=== PATIENT | male | born 1980 | race American Indian/Alaskan Native ===

== ENCOUNTER 2020-06-23 04:15 | Observation (INO) | payer OTHER, SELFPAY ==
--- NOTE | 2020-06-23 07:38 | Emergency Department Report ---
ED Shortness of Breath HPI - General Chief Complaint: Dyspnea/Respdistress Stated Complaint: LESLEE Time Seen by Provider: 06/23/20 06:19 Source: patient, EMS Mode of arrival: Stretcher Limitations: No Limitations - History of Present Illness Initial Comments: 40-year-old male presents to ED with complaint of cough. Patient arrived earlier via EMS for difficulty breathing, however patient denies any dyspnea. Patient states he has a cold, with a cough that began on yesterday. Upon my initial evaluation, patient asleep on stretcher, with O2 sats of 95% on room air. Patient was initially somewhat difficult to wake up. However, after waking up, patient was able to report his symptoms. Patient states he does not remember how he got to the emergency room. He states he only remembers falling asleep at home and then waking up here. Patient reports smoking marijuana last night, denies any other drugs or alcohol. MD Complaint: cough -: days(s) (2) Severity: mild Consistency: intermittent Improves With: nothing Worsens With: nothing Context: recent URI Treatments Prior to Arrival: none - Related Data Allergies Allergy/AdvReac Type Severity Reaction Status Date / Time No Known Allergies Allergy Unverified 06/23/20 05:45 ED Review of Systems ROS: Stated complaint: LESLEE Other details as noted in HPI Comment: All other systems reviewed and negative Constitutional: denies: chills, fever Respiratory: cough. denies: shortness of breath Cardiovascular: denies: chest pain ED Past Medical Hx - Past Medical History Previous Medical History?: No - Surgical History Past Surgical History?: No - Social History Smoking Status: Current Every Day Smoker Substance Use Type: None ED Physical Exam - General Limitations: No Limitations General appearance: alert, in no apparent distress - Head Head exam: Present: atraumatic, normocephalic - Eye Eye exam: Present: normal appearance, EOMI - ENT ENT exam: Present: mucous membranes moist - Neck Neck exam: Present: normal inspection - Respiratory Respiratory exam: Present: normal lung sounds bilaterally. Absent: respiratory distress, wheezes, rales, rhonchi - Cardiovascular Cardiovascular Exam: Present: regular rate, normal rhythm - GI/Abdominal GI/Abdominal exam: Present: soft. Absent: distended, tenderness - Extremities Exam Extremities exam: Present: normal inspection. Absent: pedal edema, calf tenderness - Neurological Exam Neurological exam: Present: alert, oriented X3 - Psychiatric Psychiatric exam: Present: normal affect, normal mood - Skin Skin exam: Present: warm, dry, intact, normal color ED Course Vital Signs 06/23/20 06/23/20 06/23/20 04:25 04:30 05:15 Temperature 98.2 F Pulse Rate 88 93 H 92 H Respiratory 24 33 H 30 H Rate Blood Pressure 124/74 121/73 115/73 Blood Pressure 124/74 [Left] O2 Sat by Pulse 95 93 92 Oximetry 06/23/20 06/23/20 06/23/20 05:30 06:01 06:31 Temperature Pulse Rate 82 82 Respiratory 31 H 25 H Rate Blood Pressure 117/58 128/79 126/78 Blood Pressure [Left] O2 Sat by Pulse 95 93 96 Oximetry 06/23/20 06/23/20 06/23/20 06:54 07:15 07:30 Temperature 98.3 F Pulse Rate 117 H Respiratory Rate Blood Pressure 121/86 123/83 Blood Pressure [Left] O2 Sat by Pulse 97 93 Oximetry 06/23/20 06/23/20 06/23/20 07:45 08:00 08:15 Temperature Pulse Rate 74 66 Respiratory Rate Blood Pressure 125/78 128/82 118/84 Blood Pressure [Left] O2 Sat by Pulse 94 95 97 Oximetry 06/23/20 06/23/20 06/23/20 09:00 10:00 11:00 Temperature Pulse Rate Respiratory Rate Blood Pressure 141/94 130/70 151/81 Blood Pressure [Left] O2 Sat by Pulse 96 96 94 Oximetry 06/23/20 06/23/20 12:15 13:30 Temperature Pulse Rate Respiratory Rate Blood Pressure 137/95 143/87 Blood Pressure [Left] O2 Sat by Pulse 98 96 Oximetry ED Medical Decision Making - Lab Data Result diagrams: 06/23/20 08:53 06/23/20 08:53 - Radiology Data Radiology results: report reviewed, image reviewed - Medical Decision Making 40-year-old male with URI symptoms no shortness of breath. O2 sats as low as 92% on room air. Chest x-ray shows multifocal pneumonia. WBC slightly elevated at 13, lactic acid is normal. Blood cultures drawn, patient given Rocephin, azithromycin, Decadron. Covid panel ordered. Drug screen also positive for cocaine. Patient will be admitted to hospitalist for further management. - Differential Diagnosis URI, COVID-19, pneumonia, intoxication Critical Care Time: Yes Critical care time in (mins) excluding proc time.: 35 Critical care attestation.: If time is entered above; I have spent that time in minutes in the direct care of this critically ill patient, excluding procedure time. Critical Care Time: 35 min ED Disposition Clinical Impression: Pneumonia, Hypoxia, Suspected 2019 novel coronavirus infection, Cocaine abuse Disposition: DC-09 OP ADMIT IP TO THIS HOSP Is pt being admited?: Yes Condition: Stable Time of Disposition: 09:47
--- NOTE | 2020-06-23 07:56 | XRay Report ---
CHEST 1 VIEW INDICATION / CLINICAL INFORMATION: cough. FINDINGS: SUPPORT DEVICES: None. HEART / MEDIASTINUM: No significant abnormality. LUNGS / PLEURA: Multifocal airspace pneumonia identified within both lower lungs. Signer Name: Salvador Bonds MD Signed: 06/23/2020 7:51 AM Workstation Name: [id number]
[2020-06-23] MEDS ORDERED: AZITHROMYCIN 250 MG TAB PO ONE (08:01)
[2020-06-23] MEDS ORDERED: cefTRIAXone/NS 1 GM/50 ML 1 GM/50 ML BAG IV ONE ×2 (08:01→12:00)
[2020-06-23] MEDS ORDERED: DEXAMETHASONE 4 MG TAB PO ONE (08:48)
[2020-06-23 09:22] LABS: Basophils # (Auto) 0.1 K/mm3 (0.0-0.1); Basophils % (Auto) 0.6 % (0.0-1.8); Eosinophils # (Auto) 0.4 K/mm3 (0.0-0.4); Eosinophils % (Auto) 2.9 % (0.0-4.3); Hematocrit 45.8 % (35.5-45.6); Hemoglobin 15.2 gm/dl (11.8-15.2); Lymphocytes # (Auto) 3.8 K/mm3 (1.2-5.4); Lymphocytes % (Auto) 27.5 % (13.4-35.0); Mean Corpuscular HGB Conc 33 % (32-34); Mean Corpuscular Volume 91 fl (84-94); Monocytes # (Auto) 1.4 K/mm3 (0.0-0.8); Monocytes % (Auto) 10.4 % (0.0-7.3); Platelet Count 217 K/mm3 (140-440); Red Blood Count 5.01 M/mm3 (3.65-5.03); Red Cell Distribution Width 14.2 % (13.2-15.2)
[2020-06-23 09:30] LABS: INR 1.03 (0.87-1.13)
[2020-06-23 09:31] LABS: Partial Thromboplastin Time 37.2 Sec. (24.2-36.6)
[2020-06-23 09:40] LABS: Alanine Aminotransferase 10 units/L (7-56); Albumin 3.4 g/dL (3.9-5); BUN/Creatinine Ratio 14; Blood Urea Nitrogen 13 mg/dL (9-20); C-Reactive Protein 4.5 mg/dL (0.00-1.30); Calcium 8.9 mg/dL (8.4-10.2); Hemolysis Index 5
[2020-06-23 09:43] LABS: Bilirubin,Direct < 0.2 mg/dL (0-0.2)
--- NOTE | 2020-06-23 11:26 | History and Physical Report ---
<POLLY FOWLER - Last Filed: 06/23/20 15:30> History of Present Illness Date of examination: 06/23/20 Date of admission: 06/23/20 Chief complaint: Shortness of breath Cough History of present illness: This is a 40-year-old male presents to ED with complaint of cough and difficulty breathing. Patient states he has a cold, with a cough that began on yesterday. patient seen in ED eating at time of my assessment. He is on room air and not in acute distress bu has cough and falls asleep on and off. patient admits tobacco and cocaine use. His O2 sats of 95% on room air. Oriented times 3 and able to carry on conversation when awake he said he does not remember how he got to the emergency room. Ed work up shows WBC 13.9, hemoglobin 15.2, D-dimer 156, sodium 141, Cr 0.9 and potassium 3.6 Chest x-ray done -it shows multifocal PNA Past History Past Surgical History: No surgical history Social history: no significant social history, smoking, alcohol abuse, other (illicit drug abuse) Family history: no significant family history Medications and Allergies Allergies Allergy/AdvReac Type Severity Reaction Status Date / Time No Known Allergies Allergy Unverified 06/23/20 05:45 Exam - Constitutional Vitals: Temp Pulse Resp BP Pulse Ox 98.3 F 66 25 H 151/81 94 06/23/20 06:54 06/23/20 08:15 06/23/20 06:01 06/23/20 11:00 06/23/20 11:00 General appearance: Present: mild distress - EENT ENT: hearing intact, clear oral mucosa - Neck Neck: Present: supple, normal ROM - Respiratory Respiratory effort: normal Respiratory: bilateral: CTA, diminished (tobacco use) - Cardiovascular Heart rate: 88 Heart Sounds: Present: S1 & S2. Absent: rub, click - Extremities Extremities: pulses symmetrical, No edema - Abdominal General gastrointestinal: Present: soft, non-tender, non-distended, normal bowel sounds - Integumentary Integumentary: Present: clear, warm, dry - Musculoskeletal Musculoskeletal: strength equal bilaterally - Psychiatric Psychiatric: cooperative, other (sleepy) - Neurologic Neurologic: CNII-XII intact, moves all extremities - Allied Health Allied health notes reviewed: nursing HEART Score - HEART Score Troponin: Troponin T < 0.010 ng/mL (0.00-0.029) 06/23/20 08:53 Results - Labs CBC & Chem 7: 06/23/20 08:53 06/23/20 08:53 Labs: Abnormal lab results 06/23/20 06/23/20 06/23/20 Range/Units 08:53 08:53 08:53 WBC 13.9 H (4.5-11.0) K/mm3 Hct 45.8 H (35.5-45.6) % [place] % (Auto) 10.4 H (0.0-7.3) % [place] # (Auto) 1.4 H (0.0-0.8) K/mm3 Seg Neutrophils # 8.1 H (1.8-7.7) K/mm3 APTT 37.2 H (24.2-36.6) Sec. Lactic Acid (0.7-2.0) mmol/L C-Reactive Protein 4.50 H (0.00-1.30) mg/dL Albumin (3.9-5) g/dL 06/23/20 06/23/20 Range/Units 08:53 08:53 WBC (4.5-11.0) K/mm3 Hct (35.5-45.6) % [place] % (Auto) (0.0-7.3) % [place] # (Auto) (0.0-0.8) K/mm3 Seg Neutrophils # (1.8-7.7) K/mm3 APTT (24.2-36.6) Sec. Lactic Acid 0.60 L (0.7-2.0) mmol/L C-Reactive Protein 4.50 H (0.00-1.30) mg/dL Albumin 3.4 L (3.9-5) g/dL Assessment and Plan - Patient Problems (1) Acute respiratory failure with hypoxia Current Visit: Yes Status: Acute Plan to address problem: respiratory care-bronchodilator and oxygen supplement as needed [employer] consult (2) Pneumonia Current Visit: Yes Status: Acute Plan to address problem: Chest x-ray shows PNA ? cause bacteria/viral Start abx azithromycin and rocephine procalcitonin-will dc abx if negative-if ok with ID ID and buggy ladle tender consult (3) Suspected 2019 novel coronavirus infection Current Visit: Yes Status: Acute Plan to address problem: continue current care-pending covid result monitor inflammatory makers ID/[employer] consult (4) DVT prophylaxis Current Visit: Yes Status: Acute Plan to address problem: lovenox (5) Cocaine abuse Current Visit: Yes Status: Acute Plan to address problem: dicussed illicit drug use cessation advised on out patient drug rehab (6) Tobacco abuse Current Visit: Yes Status: Acute Plan to address problem: discussed tobacco use cessation <RYAN HU R - Last Filed: 06/23/20 18:15> History of Present Illness Date of admission: 06/23/20 12:31 Medications and Allergies Active Meds: Active Medications Enoxaparin Sodium (Enoxaparin) 40 mg SUB-Q QDAY@1000 [facility]; Protocol Last Admin: 06/23/20 12:22 Dose: Not Given Documented by: Famotidine (Pepcid) 20 mg PO BID [facility] Last Admin: 06/23/20 12:22 Dose: 20 mg Documented by: Ceftriaxone Sodium (Rocephin/Ns 2 Gm/100 Ml) 2 gm in 100 mls @ 200 mls/hr IV Q24HR [facility]; Protocol Azithromycin 500 mg/ Sodium (Chloride) 250 mls @ 250 mls/hr IV Q24HR [facility]; Protocol Exam - Constitutional Vitals: Temp Pulse Resp BP Pulse Ox 98.3 F 66 25 H 131/95 96 06/23/20 06:54 06/23/20 08:15 06/23/20 06:01 06/23/20 16:01 06/23/20 16:01 HEART Score - HEART Score Troponin: Troponin T < 0.010 ng/mL (0.00-0.029) 06/23/20 08:53 Results - Labs CBC & Chem 7: 06/23/20 08:53 06/23/20 16:00 Labs: Abnormal lab results 06/23/20 06/23/20 06/23/20 Range/Units 08:53 08:53 08:53 WBC 13.9 H (4.5-11.0) K/mm3 Hct 45.8 H (35.5-45.6) % [place] % (Auto) 10.4 H (0.0-7.3) % [place] # (Auto) 1.4 H (0.0-0.8) K/mm3 Seg Neutrophils # 8.1 H (1.8-7.7) K/mm3 APTT 37.2 H (24.2-36.6) Sec. POC ABG pO2 (83-108) mmHg ABG Oxyhemoglobin (94-98) ABG Glucose (65-95) mg/dL Carboxyhemoglobin (0.5-1.5) Glucose (75-100) mg/dL Lactic Acid (0.7-2.0) mmol/L C-Reactive Protein 4.50 H (0.00-1.30) mg/dL Albumin (3.9-5) g/dL Arterial Blood Glucose (65-95) mg/dL 06/23/20 06/23/20 06/23/20 Range/Units 08:53 08:53 15:28 WBC (4.5-11.0) K/mm3 Hct (35.5-45.6) % [place] % (Auto) (0.0-7.3) % [place] # (Auto) (0.0-0.8) K/mm3 Seg Neutrophils # (1.8-7.7) K/mm3 APTT (24.2-36.6) Sec. POC ABG pO2 71.8 L (83-108) mmHg ABG Oxyhemoglobin 90.6 L (94-98) ABG Glucose 175 H (65-95) mg/dL Carboxyhemoglobin 4.5 H (0.5-1.5) Glucose (75-100) mg/dL Lactic Acid 0.60 L (0.7-2.0) mmol/L C-Reactive Protein 4.50 H (0.00-1.30) mg/dL Albumin 3.4 L (3.9-5) g/dL Arterial Blood Glucose 175 H (65-95) mg/dL 06/23/20 Range/Units 16:00 WBC (4.5-11.0) K/mm3 Hct (35.5-45.6) % [place] % (Auto) (0.0-7.3) % [place] # (Auto) (0.0-0.8) K/mm3 Seg Neutrophils # (1.8-7.7) K/mm3 APTT (24.2-36.6) Sec. POC ABG pO2 (83-108) mmHg ABG Oxyhemoglobin (94-98) ABG Glucose (65-95) mg/dL Carboxyhemoglobin (0.5-1.5) Glucose 149 H (75-100) mg/dL Lactic Acid (0.7-2.0) mmol/L C-Reactive Protein 5.10 H (0.00-1.30) mg/dL Albumin (3.9-5) g/dL Arterial Blood Glucose (65-95) mg/dL Assessment and Plan I saw and evaluated the patient. I agree with the findings and the plan of care as documented in the Nurse Practitioner's~note.
[2020-06-23 11:47] LABS: Bilirubin,Urine NEG (Negative); Blood,Urine NEG (Negative); Color,Urine Yellow (Yellow); Mucus,Urine FEW /HPF; Protein,Urine <15 mg/dL mg/dL (Negative)
[2020-06-23 11:54] LABS: Amphetamine Screen,Urine Negative; Benzodiazepines Screen,Urine Negative; Methadone Screen,Urine Negative; Opiate Screen,Urine Negative
[2020-06-23 12:05] LABS: Cannabinoid Screen,Urine Positive; Cocaine Screen,Urine Positive
[2020-06-23] MEDS: ENOXAPARIN 40 MG/0.4 ML INJ SUB-Q SCH (12:22)
[2020-06-23] MEDS: FAMOTIDINE 20 MG TAB PO SCH ×2 (12:22→22:12)
[2020-06-23 16:36] LABS: C-Reactive Protein 5.1 mg/dL (0.00-1.30)
[2020-06-24 08:45] LABS: Basophils # (Auto) 0.1 K/mm3 (0.0-0.1); Basophils % (Auto) 0.6 % (0.0-1.8); Eosinophils # (Auto) 0.1 K/mm3 (0.0-0.4); Eosinophils % (Auto) 1.1 % (0.0-4.3); Hematocrit 43.5 % (35.5-45.6); Hemoglobin 14.6 gm/dl (11.8-15.2); Lymphocytes # (Auto) 3.6 K/mm3 (1.2-5.4); Lymphocytes % (Auto) 29.4 % (13.4-35.0); Mean Corpuscular HGB Conc 34 % (32-34); Mean Corpuscular Volume 92 fl (84-94); Monocytes # (Auto) 1.1 K/mm3 (0.0-0.8); Monocytes % (Auto) 8.9 % (0.0-7.3); Platelet Count 219 K/mm3 (140-440); Red Blood Count 4.75 M/mm3 (3.65-5.03); Red Cell Distribution Width 14.4 % (13.2-15.2)
[2020-06-24 09:11] LABS: BUN/Creatinine Ratio 13; Blood Urea Nitrogen 13 mg/dL (9-20); Calcium 9.1 mg/dL (8.4-10.2); Hemolysis Index 7
[2020-06-24] MEDS ORDERED: cefTRIAXone/NS 2 GM/100 ML 2 GM/100 ML BAG IV SCH (10:00)
[2020-06-24] MEDS ORDERED: AZITHROMYCIN 500 MG in SODIUM CHLORIDE 0.9% 250ML 250 ML IV SCH (10:00)
[2020-06-24] MEDS: FAMOTIDINE 20 MG TAB PO SCH (11:41)
[2020-06-24] MEDS: ENOXAPARIN 40 MG/0.4 ML INJ SUB-Q SCH (11:41)
[2020-06-24] MEDS ORDERED: DEXAMETHASONE 4 MG TAB PO SCH (12:00)
--- NOTE | 2020-06-24 13:40 | Consultation ---
History of Present Illness - Reason for Consult Consult date: 06/24/20 r/o covid Requesting physician: POLLY FOWLER - History of Present Illness 40 years old male with known past medical history admitted on 06/23/2020 due to 48-hour history of denied cough or shortness of breath. Patient denies any contact with COVID-19 patients. On arrival, temperature is 98.2, O2 sat 95%. Initial WBC 13.9. Procalcitonin normal. D-dimer ferritin within normal limits. Urine drug screen positive for cocaine and marijuana. Chest x-ray shows bilateral infiltrate Review of Systems: reviewed ED and H&P notes. Limited due to PPE conservation strategy Past History Past Surgical History: No surgical history Social history: no significant social history, smoking, alcohol abuse, other (illicit drug abuse) Family history: no significant family history Medications and Allergies Allergies Allergy/AdvReac Type Severity Reaction Status Date / Time No Known Allergies Allergy Unverified 06/23/20 05:45 Home Medications Medication Instructions Recorded Confirmed Last Taken Type No Known Home Medications [No 06/23/20 06/23/20 Unknown History Reported Home Medications] Active Meds: Active Medications Dexamethasone (Decadron) 6 mg PO Q24HR [facility] Stop: 07/02/20 10:01 Last Admin: 06/24/20 13:02 Dose: 6 mg Documented by: Enoxaparin Sodium (Enoxaparin) 40 mg SUB-Q QDAY@1000 [facility]; Protocol Last Admin: 06/24/20 11:41 Dose: Not Given Documented by: Famotidine (Pepcid) 20 mg PO BID [facility] Last Admin: 06/24/20 11:41 Dose: 20 mg Documented by: Ceftriaxone Sodium (Rocephin/Ns 2 Gm/100 Ml) 2 gm in 100 mls @ 200 mls/hr IV Q24HR [facility]; Protocol Last Admin: 06/24/20 11:26 Dose: 200 mls/hr Documented by: Azithromycin 500 mg/ Sodium (Chloride) 250 mls @ 250 mls/hr IV Q24HR [facility]; Protocol Last Admin: 06/24/20 11:55 Dose: 250 mls/hr Documented by: Physical Examination - Physical Exam Narrative exam: Physical Exam: reviewed ED and hospitalist notes, limited due to conservation of PPE and decrease risk of transmission. General appearance: limited due to conservation of PPE Eyes: limited due to conservation of PPE HENT: Atraumatic; limited due to conservation of PPE Lungs: limited due to conservation of PPE CV: limited due to conservation of PPE Abdomen: limited due to conservation of PPE Extremities: limited due to conservation of PPE Skin: limited due to conservation of PPE Psych: limited due to conservation of PPE Neuro: limited due to conservation of PPE - Constitutional Vitals: Vital Signs Temp Pulse Resp BP Pulse Ox 97.4 F L 74 18 147/85 100 06/23/20 20:59 06/23/20 20:59 06/23/20 20:59 06/23/20 20:59 06/23/20 22:04 Temperature -Last 24 Hours Temperature 97.4 F Temperature 98.0 F Results - Labs CBC & Chem 7: 06/24/20 08:18 06/24/20 08:18 Labs: Abnormal lab results 06/23/20 06/23/20 06/24/20 Range/Units 15:28 16:00 08:18 WBC 12.3 H (4.5-11.0) K/mm3 [place] % (Auto) 8.9 H (0.0-7.3) % [place] # (Auto) 1.1 H (0.0-0.8) K/mm3 POC ABG pO2 71.8 L (83-108) mmHg ABG Oxyhemoglobin 90.6 L (94-98) ABG Glucose 175 H (65-95) mg/dL Carboxyhemoglobin 4.5 H (0.5-1.5) Glucose 149 H (75-100) mg/dL C-Reactive Protein 5.10 H (0.00-1.30) mg/dL Arterial Blood Glucose 175 H (65-95) mg/dL 06/24/20 Range/Units 08:18 WBC (4.5-11.0) K/mm3 [place] % (Auto) (0.0-7.3) % [place] # (Auto) (0.0-0.8) K/mm3 POC ABG pO2 (83-108) mmHg ABG Oxyhemoglobin (94-98) ABG Glucose (65-95) mg/dL Carboxyhemoglobin (0.5-1.5) Glucose (75-100) mg/dL C-Reactive Protein 2.80 H (0.00-1.30) mg/dL Arterial Blood Glucose (65-95) mg/dL Assessment and Plan Cultures: Blood culture no growth today SARS CoV2 PCR pending Assessment: 40 years old male with known past medical history admitted on 06/23/2020 due to 48-hour history of denied cough or shortness of breath: #Bilateral pneumonia: Chest x-ray shows bilateral infiltrates. Suspicion for COVID-19 infection versus community-acquired pneumonia. Inflammatory markers are normal. Patient is not hypoxic. Procalcitonin normal. #Cocaine/marijuana use: Positive urine drug screen. Recommendations: -No indication for dexamethasone or Remdesivir given lack of hypoxia -Follow-up SARS-CoV-2 PCR -Continue ceftriaxone azithromycin for now -Obtain exercise pulse oximeter, okay to discharge if normal -If SARS-CoV-2 PCR is negative okay to discharge from Levaquin 750 g p.o. once a day total 5 days All laboratory, cultures and imaging were reviewed. Will follow Hoa Joseph MD Infectious Diseases Software Test Manager [facility] ([facility] M [phone] O [phone]
[2020-06-24 13:44] VITALS: BP 106/81
--- NOTE | 2020-06-24 14:17 | Consultation ---
History of Present Illness Consult date: 06/24/20 History of present illness: This is a 40-year-old male presents to ED with complaint of cough and difficulty breathing. Patient states he has a cold, with a cough that began on yesterday. patient seen in ED eating at time of my assessment. He is on room air and not in acute distress bu has cough and falls asleep on and off. patient admits tobacco and cocaine use. His O2 sats of 95% on room air. Oriented times 3 and able to carry on conversation when awake he said he does not remember how he got to the emergency room. Ed work up shows WBC 13.9, hemoglobin 15.2, D-dimer 156, sodium 141, Cr 0.9 and potassium 3.6 Chest x-ray done -it shows multifocal PNA Past History Past Surgical History: No surgical history Social history: no significant social history, smoking, alcohol abuse, other (illicit drug abuse) Family history: no significant family history Medications and Allergies Allergies Allergy/AdvReac Type Severity Reaction Status Date / Time No Known Allergies Allergy Unverified 06/23/20 05:45 Home Medications Medication Instructions Recorded Confirmed Last Taken Type No Known Home Medications [No 06/23/20 06/23/20 Unknown History Reported Home Medications] Active Meds: Active Medications Dexamethasone (Decadron) 6 mg PO Q24HR [facility] Stop: 07/02/20 10:01 Last Admin: 06/24/20 13:02 Dose: 6 mg Documented by: Enoxaparin Sodium (Enoxaparin) 40 mg SUB-Q QDAY@1000 [facility]; Protocol Last Admin: 06/24/20 11:41 Dose: Not Given Documented by: Famotidine (Pepcid) 20 mg PO BID [facility] Last Admin: 06/24/20 11:41 Dose: 20 mg Documented by: Ceftriaxone Sodium (Rocephin/Ns 2 Gm/100 Ml) 2 gm in 100 mls @ 200 mls/hr IV Q24HR [facility]; Protocol Last Admin: 06/24/20 11:26 Dose: 200 mls/hr Documented by: Azithromycin 500 mg/ Sodium (Chloride) 250 mls @ 250 mls/hr IV Q24HR [facility]; Protocol Last Admin: 06/24/20 11:55 Dose: 250 mls/hr Documented by: Review of Systems All systems: negative Physical Examination Vital signs: Vital Signs Temp Pulse Resp BP Pulse Ox 98.2 F 88 24 124/74 95 06/23/20 04:25 06/23/20 04:25 06/23/20 04:25 06/23/20 04:25 06/23/20 04:25 Results - Laboratory Findings CBC and BMP: 06/24/20 08:18 06/24/20 08:18 ABG ABG pH 7.407 (7.320-7.450) 06/23/20 15:28 POC ABG pCO2 44.1 mmHg (32.0-48.0) 06/23/20 15:28 POC ABG pO2 71.8 mmHg (83-108) L 06/23/20 15:28 POC ABG HCO3 27.1 06/23/20 15:28 PT/INR, D-dimer PT 13.7 Sec. (12.2-14.9) 06/23/20 08:53 INR 1.03 (0.87-1.13) 06/23/20 08:53 D-Dimer 138.40 ng/mlDDU (0-234) 06/23/20 16:00 Abnormal lab findings: Abnormal Labs 06/23/20 06/23/20 06/23/20 08:53 08:53 08:53 WBC 13.9 H Hct 45.8 H [place] % (Auto) 10.4 H [place] # (Auto) 1.4 H Seg Neutrophils # 8.1 H APTT 37.2 H POC ABG pO2 ABG Oxyhemoglobin ABG Glucose Carboxyhemoglobin Glucose Lactic Acid C-Reactive Protein 4.50 H Albumin Arterial Blood Glucose 06/23/20 06/23/20 06/23/20 08:53 08:53 15:28 WBC Hct [place] % (Auto) [place] # (Auto) Seg Neutrophils # APTT POC ABG pO2 71.8 L ABG Oxyhemoglobin 90.6 L ABG Glucose 175 H Carboxyhemoglobin 4.5 H Glucose Lactic Acid 0.60 L C-Reactive Protein 4.50 H Albumin 3.4 L Arterial Blood Glucose 175 H 06/23/20 06/24/20 06/24/20 16:00 08:18 08:18 WBC 12.3 H Hct [place] % (Auto) 8.9 H [place] # (Auto) 1.1 H Seg Neutrophils # APTT POC ABG pO2 ABG Oxyhemoglobin ABG Glucose Carboxyhemoglobin Glucose 149 H Lactic Acid C-Reactive Protein 5.10 H 2.80 H Albumin Arterial Blood Glucose - Diagnostic Findings Chest x-ray: report reviewed, image reviewed Additional studies: CHEST 1 VIEW INDICATION / CLINICAL INFORMATION: cough. FINDINGS: SUPPORT DEVICES: None. HEART / MEDIASTINUM: No significant abnormality. LUNGS / PLEURA: Multifocal airspace pneumonia identified within both lower lungs. Assessment and Plan - Patient Problems (1) Acute respiratory failure with hypoxia Current Visit: Yes Status: Acute (2) Cocaine abuse Current Visit: Yes Status: Acute (3) Pneumonia Current Visit: Yes Status: Acute (4) Suspected 2019 novel coronavirus infection Current Visit: Yes Status: Acute (5) Tobacco abuse Current Visit: Yes Status: Acute
--- NOTE | 2020-06-24 14:29 | Discharge Summary ---
<SANKETJAGMAX HMelva - Last Filed: 06/24/20 14:33> Providers - Providers Date of Admission: 06/23/20 12:31 Attending physician: RYAN HU 06/23/20 11:39 Consult to Physician [CONS] Routine Comment: Consulting Provider: FARNAZ ACEVES Physician Instructions: Reason For Exam: PUI for covid Consult to Physician [CONS] Routine Comment: Consulting Provider: GINNY JOSUE Physician Instructions: Reason For Exam: PNA Primary care physician: MRB ENGINEER Hospitalization Condition: Stable Hospital course: This is a 40-year-old male with tobacco and cocaine abuse presented to ED with complaint of cough and difficulty breathing on 06/23. Patient stated that he has a cold and the cough began on 06/22. Recommend emergency department revealed leukocytosis and a chest x-ray showed multifocal pneumonia. Infectious disease and pulmonology was consulted. Patient was made a COVID-19 PUI. On 06/24 his COVID-19 PCR was noted as negative. Patient will be discharged home with a 5- day course of Levaquin. Patient will need to follow-up with his primary care physician within 1 to 2 weeks of discharge. Tobacco and cocaine abuse cessation strongly encouraged. (1) Acute respiratory failure with hypoxia Current Visit: Yes Status: Resolved Plan to address problem: Bronchodilator as needed Oxygen as needed Automated Teller Manager consult (2) Pneumonia Current Visit: Yes Status: Acute Plan to address problem: Chest x-ray shows PNA Started on azithromycin and Rocephin on 06/23 which were discontinued given normal CRP level ID was consulted Patient will be discharged with p.o. Levaquin 750 mg for 5 days (3) Suspected 2019 novel coronavirus infection Current Visit: Yes Status: Resolved Plan to address problem: COVID-19 PCR negative (4) Cocaine abuse Current Visit: Yes Status: Chronic Plan to address problem: Patient UDS positive for cocaine and marijuana Substance abuse cessation encouraged (6) Tobacco abuse Current Visit: Yes Status: Chronic Plan to address problem: Tobacco abuse cessation strongly encouraged Disposition: DC-01 TO HOME OR SELFCARE Time spent for discharge: 35 Core Measure Documentation - Palliative Care Palliative Care/ Comfort Measures: Not Applicable - Core Measures Any of the following diagnoses?: none Exam - Constitutional Vitals: Temp Pulse Resp BP Pulse Ox 97.6 F 79 18 106/81 93 06/24/20 11:27 06/24/20 11:27 06/24/20 11:27 06/24/20 11:27 06/24/20 11:27 General appearance: Present: no acute distress - EENT Eyes: Present: PERRL, EOM intact ENT: hearing intact, clear oral mucosa - Neck Neck: Present: supple, normal ROM - Respiratory Respiratory effort: normal Respiratory: bilateral: CTA - Cardiovascular Rhythm: regular Heart Sounds: Present: S1 & S2. Absent: systolic murmur, diastolic murmur - Extremities Extremities: no ischemia, pulses intact, pulses symmetrical, No edema, normal temperature, normal color, Full ROM Peripheral Pulses: within normal limits - Abdominal General gastrointestinal: Present: soft, non-tender, non-distended, normal bowel sounds - Integumentary Integumentary: Present: clear, warm, dry - Musculoskeletal Musculoskeletal: strength equal bilaterally - Psychiatric Psychiatric: appropriate mood/affect, cooperative - Neurologic Neurologic: CNII-XII intact, no focal deficits, moves all extremities Plan Activity: advance as tolerated Diet: regular Special Instructions: smoking cessation, other (Cocaine abuse cessation) Additional Instructions: Continuous emergency department contact your primary care physician if you experience worsening symptoms. Follow-up with your primary care physician within 1 to 2 weeks of discharge. You will be discharged with a 5-day course of Levaquin. Follow up with: PRIMARY CARE, [Primary Care Provider] - 3-5 Days Prescriptions: levoFLOXacin [Levaquin] 750 mg PO QDAY #5 tablet <RYAN HU - Last Filed: 06/24/20 16:26> Providers - Providers Date of Admission: 06/23/20 12:31 Attending physician: RYAN HU 06/23/20 11:39 Consult to Physician [CONS] Routine Comment: Consulting Provider: FARNAZ ACEVES Physician Instructions: Reason For Exam: PUI for covid Consult to Physician [CONS] Routine Comment: Consulting Provider: GINNY JOSUE Physician Instructions: Reason For Exam: PNA Primary care physician: MRB ENGINEER Hospitalization Hospital course: I saw and evaluated the patient. I agree with the findings and the plan of care as documented in the Nurse Practitioner's~note, COVID 19 was negative Exam - Constitutional Vitals: Temp Pulse Resp BP Pulse Ox 97.6 F 79 18 106/81 93 06/24/20 11:27 06/24/20 11:27 06/24/20 11:27 06/24/20 11:27 06/24/20 11:27
--- NOTE | 2020-06-24 15:19 | XRay Report ---
XR chest 1V ap INDICATION / CLINICAL INFORMATION: pneumonia COMPARISON: Yesterday's radiograph FINDINGS: SUPPORT DEVICES: None. HEART / MEDIASTINUM: No significant abnormality. LUNGS / PLEURA: No significant change in the lung parenchyma. Costophrenic sulci are sharp. No pneumo thorax. ADDITIONAL FINDINGS: No significant additional findings. IMPRESSION: 1. No significant change. Signer Name: Rupesh Cooper MD Signed: 06/24/2020 3:15 PM Workstation Name: [id number]
== END 2020-06-24 16:46 | disposition home or self-care (01) ==
LOC: ED 04:15 → 3A 12:31
PROVIDERS: ADMIT Internal Medicine; ATTEND Internal Medicine
DX: J96.01 Acute respiratory failure with hypoxia (principal); Z20.828 Contact with and (suspected) exposure to other viral communicable diseases; J18.9 Pneumonia, unspecified organism; F14.10 Cocaine abuse, uncomplicated; F17.200 Nicotine dependence, unspecified, uncomplicated; Z79.899 Other long term (current) drug therapy
CPT/HCPCS: 36415; 36600; 71045; 80048; 80076; 80307; 81001; 82140; 82728; 82805; 82947; 83615; 84145; 84484; 85025; 85379; 85610; 85730; 86140; 87040; 93005; 96365; 96366; 96367; 99291; G0378; J0456; J0696; J1650; J7050; J8540; U0003; 80320; G0480